=== PATIENT | female | born 1970 | race Caucasian/White ===

== ENCOUNTER 2017-10-01 06:40 | Observation (INO) | payer BC, OTHER ==
[2017-10-01] VITALS (9 sets, daily range): BP systolic 123–145; BP diastolic 80–97
[~2017-10-01] VITALS: Ht 152.4 cm; Wt 85.3 kg
--- NOTE | ~2017-10-01 | P ---
[facility] [place] [address] PROCEDURE REPORT Name: LEONOR ROSE Room #: 205-P [facility] MMayelin.#: [id number] Admission: 10/01/17 Attend Phys: Madhu Martinez MD Discharge: 10/02/17 Date of : 68 Report #: [id number] THIS REPORT FOR: //name// CC: Melo Martinez DATE OF SERVICE: 10/01/2017 PREOPERATIVE DIAGNOSIS: Supraventricular tachycardia. POSTOPERATIVE DIAGNOSIS: Supraventricular tachycardia. PROCEDURES PERFORMED: 1. SVT ablation. 2. 3D mapping. 3. Transseptal procedure. 4. EP testing after drug infusion. HISTORY: The patient is a 47-year-old with new onset supraventricular tachycardia who is here for an ablation. ANESTHESIA: The patient underwent MAC anesthesia with no anesthesia related complications. DESCRIPTION OF PROCEDURE: The patient underwent informed consent. We discussed the details of the procedure including the risks, which include but not limited to bleeding, vascular damage, stroke, NE as well as damage to the chemehuevi conduction system requiring permanent pacemaker. She understood these risks and is willing to proceed. The patient was brought to the EP laboratory in a fasting and unsedated state and prepped and draped in a sterile fashion. Next, I injected lidocaine to the bilateral groin regions and obtained access to the bilateral veins x 2. In the right femoral vein, I placed an 8-Finnish and 6-Finnish short sheath. In the left femoral vein, I placed a 7-Finnish and 6-Finnish short sheath. Under fluoroscopic guidance, I placed a decapolar catheter into the coronary sinus. Of note, the decapolar would not sit easily into the coronary sinus. Quadripolar catheters were placed at the HRA, His, and RV positions. At baseline, the patient was in sinus rhythm with a sinus cycle length of 645 milliseconds, MD interval of 130 milliseconds, a QRS duration of 80 milliseconds, QT interval 325 milliseconds, an AH interval of 60 milliseconds, and HV interval 35 milliseconds. Next, atrial burst pacing was performed and there was no evidence of manifest preexcitation. The patient quickly went into SVT with a tachycardia cycle length of 300 milliseconds with a septal VA time of 90 milliseconds. It appeared that the earliest atrial signal was at CS 7, 8. I was not certain if this was related to the possible pathway versus the coronary sinus sheath not [facility] [address] [place] [address] PROCEDURE REPORT Name: LEONOR ROSE Room #: 205-P [facility] Luis A Darling#: [id number] Admission: 10/01/17 Attend Phys: Madhu Martinez MD Discharge: 10/02/17 Date of : 68 Report #: [id number] sitting in very well. I tried repositioning it, but again it would not sit in as well as I would like. Regardless, I attempted to entrain as tachycardia and the tachycardia would terminate with attempts of entrainment. SVT was easily inducible with atrial burst pacing or delivering a single atrial extrastimuli. Again, I probably attempted to entrain this 10-20 times unsuccessfully. Ventricular pacing was performed and VA block was less than 250 milliseconds. The earliest CS activation with ventricular pacing appeared to be at CS 7, 8 again. VA ERP was noted at 280 milliseconds at a [address] cycle length and it appeared that there was minimal decremental VA conduction. Next, isoproterenol was initiated at 0.5 mcg to see if this would help with entrainment and again this was not successful. I then increased Isuprel to 1 mcg per minute and continued inducing tachycardia, but could not entrain the tachycardia. Actually with ventricular pacing while in sinus rhythm, I did induce atrial fibrillation, which then organized back to same supraventricular tachycardia. With atrial fibrillation, there was no manifest preexcitation. I was able to finally entrain the tachycardia once and the PPI minus tachycardia cycle length was 110-130 milliseconds. As a post-entrainment, there was slight oscillation in the SVT cycle length of about 10-15 milliseconds. As such, this value was somewhat on the border zone of this either being an atypical AV wilbert reentrant tachycardia versus septal accessory pathway. I was still not entirely convinced that VA conduction at this point was related to a pathway as I had difficulty placing the CS catheter in. I did attempt to perform a para-Hisian pacing, but I could not successfully perform this. I therefore decided to perform an empiric slow pathway modification. I exchanged my HRA catheter and sheath for an SR0 and a 4 mm Biosense Bell ablation catheter. A detailed 3D geometry of the His bundle and slow pathway was created. I performed 2 or 3 lesions, all with very nice slow junctionals. I therefore performed post-ablation testing and reinitiated isoproterenol and I was able to re-induce the SVT. 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 I initially attempted to place my ablation catheter inside the coronary sinus while the decapolar catheter was still in position here. I could not really advance this much past the ostium to really map the tachycardia. I therefore prepped the patient for a transseptal. I obtained access to the left femoral vein and placed a 9-Finnish short sheath in the left femoral vein. I then placed an ice catheter into the right atrium and the patient was systemically heparinized and a transseptal was performed using an SL1 sheath and a [place] needle. Once in the left atrium, I performed an activation map of the accessory pathway while pacing the ventricle. The earliest atrial signals were occurring at around 6 o'clock on the mitral annulus, which appeared to be on time with the earliest signal on the coronary sinus catheter. I did have a nice fusion between the local ventricular and atrial signals. I did perform ablation at the earliest sites. I also performed mapping while in SVT to see if this would provide with a better site for ablation. After I performed several ablation lesions, there was now a change in the cycle length of the tachycardia. The tachycardia would cycle between 300 [facility] [address] [place] [address] PROCEDURE REPORT Name: LEONOR ROSE Room #: 205-P [facility] Luis A Sood.#: [id number] Admission: 10/01/17 Attend Phys: Madhu Martinez MD Discharge: 10/02/17 Date of : 68 Report #: [id number] and 360 milliseconds every other beat. There was a slight oscillation in the activation at CS 7, 8 and CS 5, 6. Occasionally, ablation at this site would result in termination of the tachycardia, but it would re-induce. After performing extensive ablation at this site, I thought that our next best option would be to look back into the coronary sinus. Again, I attempted to place my ablation catheter via the SL1 sheath into the coronary sinus, but this was unsuccessful. I therefore had to take the decapolar catheter out and go straight in with the ablation catheter. I therefore performed an activation map while pacing the ventricle in looking for the earliest atrial signals. I re-induced tachycardia and this appeared to be an early site as well and I decided to perform ablation at this site. After approximately 5 seconds, the tachycardia cycle length changed. It was no longer oscillating between 300 and 360 milliseconds, but was now stable at 340 milliseconds. The atrial activation was also changed on the ablation catheter. However, the patient remained in SVT with a tachycardia cycle length of 340 milliseconds. I attempted to entrain this to see if now we were dealing with atypical AVNRT, but again it terminated. I had some difficulties re-inducing the tachycardia, so I removed my ablation catheter from the coronary sinus and placed a decapolar catheter back into the coronary sinus. Now with ventricular pacing, the VA conduction appeared to be more consistent with conduction via the AV node. Ventricular burst pacing showed that VA block was 330 milliseconds and now there was evidence of a decremental VA conduction. I could not induce the tachycardia, so I reinitiated isoproterenol 1 mcg per minute and SVT was induced at 320 milliseconds with a septal VA time of 100 milliseconds and again I attempted to entrain this unsuccessfully. I then attempted to re-induce the tachycardia, but now I was getting bursts of atrial fibrillation. I would get some short runs of the SVT, but not long enough that I could map it any further. These were more nonsustained in nature. At this point, I performed a slow pathway modification and appeared to have taken care of a concealed accessory pathway and I could no longer adequately map the arrhythmia given its briefer runs. As such, no further ablation was performed and the procedure was concluded. Catheters and sheaths were pulled. Hemostasis was obtained after the patient received systemic protamine. The patient awoke neurologically and hemodynamically intact with no complications and no significant bleeding. CONCLUSIONS: 1. 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 Continued runs of supraventricular tachycardia of unknown mechanism due to their nonsustained nature. 2. Normal SA wilbert function. 3. Normal AV wilbert function. 4. Normal His-Purkinje function. PLANS: It appears we have had a partially successful ablation. There may still be another arrhythmia that I could not map further. I will recommend continuing [facility] [address] [place] [address] PROCEDURE REPORT Name: LEONOR ROSE Room #: 205-P [facility] Luis A Darling#: [id number] Admission: 10/01/17 Attend Phys: Madhu Martinez MD Discharge: 10/02/17 Date of : 68 Report #: [id number] with medical therapy and if she has recurrent episodes, we can consider bringing her back for repeat ablation. <ELECTRONICALLY SIGNED> By: Madhu Martinez MD 10/15/17 [id number] Madhu Martinez MD /nt
[~2017-10-01 06:40] MED LIST: DEPO-PROVE150 MG/11 IM; DOXYCYCLINE 10100 M1 PO; PREDNISONE 10 M10 MG PO; VERAPAMIL ER180 M1 PO
[2017-10-01 07:16] LABS: ABSOLUTE NEUTROPHILS 4.9 thou/uL (1.4-8.2); BASOPHILS 1.2 % (0.0-2.0); EOSINOPHILS 4.7 % (0.0-3.0); HEMATOCRIT 45.9 % (37.0-47.0); HEMOGLOBIN 15.1 gm/dL (12.0-15.0); LYMPHOCYTES 27.8 % (24.0-44.0); MCH 27.9 pg (26.0-34.0); MCHC 32.8 g/dL (28.0-37.0); MCV 84.9 fL (80.0-100.0); MONOCYTES 6.5 % (1.0-8.0); PLATELET COUNT 265 thou/uL (150-400); POLYS 59.8 % (36.0-66.0); RBC 5.41 mil/uL (4.20-5.00); WBC 8.2 thou/uL (4.0-11.0)
[2017-10-01 07:19] LABS: CALCIUM 9.3 mg/dL (8.5-10.1)
[2017-10-01 07:26] LABS: ALBUMIN 3.9 g/dL (3.4-5.0); TOTAL BILIRUBIN 0.4 mg/dL (<0.1-1.0)
[2017-10-01 09:07] LABS: APTT 25.7 Seconds (24.5-32.8); PROTIME 10.6 Seconds (9.3-11.4)
[2017-10-02 04:46] VITALS: BP 131/79
[2017-10-02 07:27] VITALS: BP 145/90
[2017-10-02] MEDS ORDERED: FLECAINIDE ACET50 M1 PO (07:56)
[2017-10-02] MEDS ORDERED: TOPROL XL25 MG PO (07:59)
[2017-10-02 09:59] VITALS: BP 145/90
[2017-10-02 10:21] VITALS: BP 145/90
== END 2017-10-02 10:23 | disposition home or self-care (01) ==
LOC: CATH 06:40 → 2N 15:17
PROVIDERS: Internal Medicine Cardiovascular Disease
DX: I47.1 Supraventricular tachycardia (principal); R50.9 Fever, unspecified
CPT/HCPCS: 62110; 70005

== ENCOUNTER 2018-01-04 06:34 | Observation (INO) | payer BC, OTHER ==
[2018-01-04] VITALS (11 sets, daily range): BP systolic 112–152; BP diastolic 66–91
[~2018-01-04] VITALS: Ht 152.4 cm; Wt 85.7 kg
--- NOTE | ~2018-01-04 | P ---
[facility] [place] [address] PROCEDURE REPORT Name: LEONOR ROSE Room #: 208-P [facility] Luis A MMayelin.#: [id number] Admission: 01/04/18 Attend Phys: Madhu Martinez MD Discharge: 01/05/18 Date of : 68 Report #: [id number] THIS REPORT FOR: //name// CC: Melo Martinez SUPRAVENTRICULAR TACHYCARDIA ABLATION PREOPERATIVE DIAGNOSIS: Supraventricular tachycardia. POSTOPERATIVE DIAGNOSIS: Supraventricular tachycardia. HISTORY: The patient is a 47-year-old female who previously underwent attempted ablation of the accessory pathway from a transseptal position. 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 She is here for repeat ablation of her accessory pathway. ANESTHESIA: The patient underwent MAC anesthesia with no anesthesia-related complications. DESCRIPTION OF PROCEDURE: The patient underwent informed consent. We discussed the details of the procedure including risks, which include but not limited to bleeding, vascular damage, cardiac perforation as well as stroke or CO. She understood these risks and is willing to proceed. The patient was brought to the EP laboratory in fasting and sedated state, prepped and draped in a sterile fashion and I obtained access to the bilateral femoral veins placing sheaths using the modified Seldinger technique. Under fluoroscopy, I placed 3 quadripolar catheters at the HRA, His and RV positions and the decapolar catheter into the coronary sinus. Of note, on the initial procedure, I did have difficulties maintaining the decapolar catheter in the coronary sinus, but this time it set much more easily. At baseline, the patient was in sinus rhythm with a sinus cycle length of 605 milliseconds, CT interval 130 milliseconds, QRS duration 81 milliseconds, QT interval 350 milliseconds, AH interval 71 milliseconds, and HV interval of 37 milliseconds. Of note, there is no manifest preexcitation. This is a concealed left-sided pathway. Next, the atrial burst pacing was performed and AV block was noted at 260 milliseconds. Atrial ERP was noted at 260 milliseconds at [address] cycle length. Next, ventricular burst pacing was performed and VA block was less than 260 milliseconds. Next, ventricular extrastimuli were delivered and the accessory pathway effective refractory period was noted at 270 milliseconds at [address] cycle length. Of note, the earliest activation was noted at CS 67 and there is obvious nondecremental conduction. Prior to ablation, I did give the patient 12 of adenosine while pacing the [facility] [address] [place] [address] PROCEDURE REPORT Name: LEONOR ROSE Room #: 208-P [facility] M.R.#: [id number] Admission: 01/04/18 Attend Phys: Madhu Martinez MD Discharge: 01/05/18 Date of : 68 Report #: [id number] ventricle and this clearly demonstrated conduction retrograde via the pathway again earliest at CS 67. Next, isoproterenol infusion was initiated at 1 mcg per minute. Atrial ERP was noted 220 milliseconds at [address] cycle length. Next, atrial burst pacing resulted in SVT with a tachycardia cycle length of 260 milliseconds and a septal VA time of 130 milliseconds. The shortest VA time was from CS 67 at 110 milliseconds. Of note, this tachycardia could not be entrained on the first ablation nor on this ablation. 3D MAPPING AND ABLATION: Next, I created a detailed 3D geometry of the right atrium, the coronary sinus ostium and the coronary sinus. We performed an activation map of the earliest atrial activity both in SVT and with ventricular pacing and mapping the earliest atrial signal. I used a ThermoCool ablation catheter in the coronary sinus ostium at 30 stroud and performed ablation at the site of earliest atrial activation. There was a fractionated electrograms consistent with a pathway potential. Ablation at this site resulted in loss of the accessory pathway within 6 seconds. We tested for a period of 30 minutes and at around 30 minutes, I could re-induce the tachycardia. I therefore performed additional mapping including in the middle cardiac vein and an ablation lesion at this site did not result in loss of the accessory pathway signal. I therefore found a site that was slightly more proximal and closer to the coronary sinus ostium than my previous burn. This site was slightly more superior to my other lesion as well. With ablation at this site, there was obvious splitting of the ventricular and atrial signals and immediate normalization of conduction via the AV node in a retrograde fashion. I performed several consolidation lesions at this site. POST-ABLATION FINDINGS: Post-ablation, we tested for over 30 minutes on and off isoproterenol. On isoproterenol, AV block was noted at 250 milliseconds. Atrial ERP was noted at 230 milliseconds at [address] cycle length. Now VA block was both midline and decremental and VA block was noted at 300 milliseconds. Isoproterenol was discontinued and VA block was noted at 350 milliseconds and remained midline. Post-ablation, the patient was in sinus rhythm with sinus cycle length of 550 milliseconds, CT interval 150 milliseconds, QRS duration 70 milliseconds, QT interval 345 milliseconds, AH interval 77 milliseconds, and HV interval 36 milliseconds. As such, all catheters and sheaths were pulled. Hemostasis obtained. The patient awoke neurologically and hemodynamically intact. CONCLUSIONS: 1. Successful ablation of a concealed accessory pathway located in the proximal third of the coronary sinus. 2. Normal SA wilbert function. 3. Normal AV wilbert function. 4. Normal His-Purkinje function. [facility] [address] [place] [address] PROCEDURE REPORT Name: MILTONLEONOR Joshua Room #: 208-P [facility] Luis A M.R.#: [id number] Admission: 01/04/18 Attend Phys: Madhu Martinez MD Discharge: 01/05/18 Date of : 68 Report #: [id number] 5. No other inducible arrhythmias on or off isoproterenol, post-ablation of the pathway. By: [id number] Madhu Martinez MD /nt
[~2018-01-04 06:34] MED LIST changes: +FLECAINIDE ACET50 M1 PO; +TOPROL XL25 MG PO
[2018-01-04] MEDS ORDERED: CLARITIN10 MG PO (07:24)
[2018-01-04] MEDS ORDERED: ZANTAC 150MG T150 MG PO (07:24)
[2018-01-04 07:26] LABS: ABSOLUTE NEUTROPHILS 5.2 thou/uL (1.4-8.2); BASOPHILS 1.3 % (0.0-2.0); EOSINOPHILS 4.4 % (0.0-3.0); HEMATOCRIT 45.8 % (37.0-47.0); HEMOGLOBIN 15.6 gm/dL (12.0-15.0); LYMPHOCYTES 30.1 % (24.0-44.0); MCH 28.4 pg (26.0-34.0); MCHC 34.1 g/dL (28.0-37.0); MCV 83.2 fL (80.0-100.0); MONOCYTES 7.3 % (1.0-8.0); PLATELET COUNT 257 thou/uL (150-400); POLYS 56.9 % (36.0-66.0); RDW 13.8 % (10.5-14.5); WBC 9.2 thou/uL (4.0-11.0)
[2018-01-04 07:33] LABS: CALCIUM 8.9 mg/dL (8.5-10.1); CREATININE 1.1 mg/dL (0.6-1.0); POTASSIUM 3.8 mmol/L (3.5-5.1)
[2018-01-04 07:38] LABS: ALBUMIN 3.8 g/dL (3.4-5.0); TOTAL BILIRUBIN 0.4 mg/dL (<0.1-1.0)
[2018-01-04 07:43] LABS: APTT 23.1 Seconds (24.5-32.8); PROTIME 10.4 Seconds (9.3-11.4)
[2018-01-05 04:47] VITALS: BP 126/88
[2018-01-05 07:44] VITALS: BP 126/88
[2018-01-05 08:30] VITALS: BP 134/84
== END 2018-01-05 09:23 | disposition home or self-care (01) ==
LOC: CATH 06:34 → 2N 13:36 → CATH 15:40 → ENTRNSPT 01-05 09:11 → EDTRNSPTSTS 01-05 09:16 → 2N 01-05 09:23
PROVIDERS: Internal Medicine Cardiovascular Disease
DX: I47.1 Supraventricular tachycardia (principal); R06.02 Shortness of breath; R42 Dizziness and giddiness; Z98.890 Other specified postprocedural states; Z72.89 Other problems related to lifestyle
CPT/HCPCS: 62110; 62900; 70005